=== PATIENT | female | born 1995 | race Caucasian/White ===

== ENCOUNTER 2017-07-28 04:32 | Emergency (ER) | payer BC, OTHER ==
[2017-07-28] MEDS ORDERED: DICYCLOMINE 10 MG CAPSULE PO STA (04:44)
[2017-07-28] MEDS ORDERED: ONDANSETRON ODT 4 MG TABLET TL STA (04:44)
--- NOTE | 2017-07-28 05:09 | ED Physician Documentation ---
PD HPI NVD - Stated complaint Stated Complaint: ABDOMINAL PAIN,VOMITING - Chief complaint Chief Complaint: Abd Pain - History obtained from History obtained from: Patient - History of Present Illness Timing - onset: How many hours ago (1) Timing - details: Abrupt onset Associated symptoms: Abdominal pain. No: Fever, Chest pain Contributing factors: No: Sick contact, Bad food Similar symptoms before: Has not had sx before Recently seen: Not recently seen - Additonal information Additional information: Patient is a 22 year old female with a history of anxiety who is presenting to the emergency department for an hour of abdominal pain and one episode of vomiting. Patient states that she woke up with abdominal pain and threw up once and then came to the emergency department. Review of Systems Constitutional: denies: Fever, Chills Eyes: reports: Reviewed and negative Ears: reports: Reviewed and negative Nose: reports: Reviewed and negative Throat: reports: Reviewed and negative GI: reports: Abdominal Pain, Nausea, Vomiting. denies: Constipation, Diarrhea : reports: Vaginal bleeding. denies: Dysuria, Frequency Skin: denies: Rash, Lesions Musculoskeletal: reports: Neck pain, Back pain, Extremity pain Neurologic: reports: Generalized weakness, Focal weakness Psychiatric: reports: Anxiety Immunocompromised: denies: Immunocompromised PD PAST MEDICAL HISTORY - Past Medical History Past Medical History: Yes Respiratory: Asthma Neuro: Headache/migraine Psych: Anxiety - Past Surgical History Past Surgical History: Yes - Present Medications Home Medications: Ambulatory Orders Medication Instructions Recorded Confirmed Sertraline HCl 1 tab PO DAILY 11/27/15 07/28/17 Dicyclomine [Bentyl] 10 mg PO QID #14 capsule 07/28/17 Ondansetron Odt [Zofran] 4 mg TL Q6H PRN #20 tablet 07/28/17 Sulfamethox/Trimeth 800/160 1 each PO BID #14 tablet 07/28/17 [Bactrim Ds 800/160] - Allergies Allergies/Adverse Reactions: Allergies Allergy/AdvReac Type Severity Reaction Status Date / Time No Known Drug Allergies Allergy Verified 11/27/15 02:52 - Social History Does the pt smoke?: No Smoking Status: Never smoker Does the pt drink ETOH?: Yes Does the pt have substance abuse?: No - Immunizations Immunizations are current?: Yes - POLST Patient has POLST: No PD ED PE NORMAL - Vitals Vital signs reviewed: Yes - General General: Alert and oriented X 3, No acute distress, Well developed/nourished - HEENT HEENT: Atraumatic, PERRL, Moist mucous membranes, Pharynx benign - Neck Neck: Supple, no meningeal sign, No JVD - Cardiac Cardiac: RRR, No murmur - Respiratory Respiratory: No respiratory distress - Abdomen Abdomen: Soft, Non tender, Non distended - Derm Derm: Normal color, Warm and dry, No rash - Extremities Extremities: No deformity, Normal ROM s pain, No calf tenderness / cord - Neuro Neuro: Alert and oriented X 3, No motor deficit, No sensory deficit, Normal speech PD ED PE EXPANDED - General General: Alert, Anxious Results - Vitals Vitals: Vital Signs - 24 hr 07/28/17 04:40 Temperature 36.0 C L Heart Rate 84 Respiratory 18 Rate Blood Pressure 128/81 H O2 Saturation 99 Oxygen O2 Source Room air - Labs Labs: Laboratory Tests 07/28/17 05:12 Urine Color YELLOW Urine Clarity HAZY Urine pH 6.0 Ur Specific [place] >=1.030 H Urine Protein NEGATIVE Urine Glucose (UA) NEGATIVE Urine Ketones NEGATIVE Urine Occult Blood LARGE H Urine Nitrite NEGATIVE Urine Bilirubin NEGATIVE Urine Urobilinogen 0.2 (NORMAL) Ur Leukocyte Esterase SMALL H Urine RBC 11-25 H Urine WBC 11-25 H Ur Squamous Epith Cells MANY Squamous H Urine Bacteria Many H Urine Mucus Few Strands Ur Microscopic Review INDICATED Urine Culture Comments NOT INDICATED Urine HCG, Qual NEGATIVE PD MEDICAL DECISION MAKING - ED course Complexity details: reviewed old records, reviewed results, re-evaluated patient , considered differential, d/w patient ED course: Patient was seen and examined at bedside. Patient's vital signs were within normal limits. Patient was treated with zofran and bentyl. One episode of vomiting is not an indication for extensive work up. urine was collected and patient was not but did have findings suggestive of a urinary tract infection. Patient was made aware that extra testing was not indicated at this time. She was told she might develop diarrhea and more vomiting. patient was given detailed discharge and follow up instructions. patient required no further work up and was stable for discharge with outpatient follow up. Departure - Departure Disposition: 01 Home, Self Care Clinical Impression: Gastroenteritis, Urinary tract infection Condition: Good Instructions: ED Gastroenteritis Viral, ED UTI Cystitis Female Follow-Up: Grimm,Juan, MD [Primary Care Provider] - Within 1 week Prescriptions: Dicyclomine [Bentyl] 10 mg PO QID #14 capsule Ondansetron Odt [Zofran] 4 mg TL Q6H PRN #20 tablet PRN Reason: Nausea / Vomiting Sulfamethox/Trimeth 800/160 [Bactrim Ds 800/160] 1 each PO BID #14 tablet Comments: Your symptoms are likely being caused by gastroenteritis and a urinary tract infection. For the gastroenteritis you should take the zofran and bentyl and make sure you stay well hydrated. You may develop some diarrhea along with it. For the urinary tract infection you had your first dose of antibiotics and you will be on them for the next week. You can take motrin or tylenol as needed for pain. You should follow up with your doctor if your symptoms persist. You may return to the emergency department at any time for new, worsening or uncontrollable symptoms.
[2017-07-28] MEDS ORDERED: ACETAMINOPHEN 500 MG TABLET PO STA (05:15)
[2017-07-28 05:24] LABS: BILIRUBIN,URINE NEGATIVE (NEGATIVE); CLARITY,URINE HAZY (CLEAR); GLUCOSE, URINE (UA) NEGATIVE (NEGATIVE); KETONES,URINE (UA) NEGATIVE (NEGATIVE); LEUKOCYTE ESTERASE, URINE SMALL (NEGATIVE); NITRITE,URINE NEGATIVE (NEGATIVE); OCCULT BLOOD,URINE LARGE (NEGATIVE); PROTEIN,URINE NEGATIVE (NEGATIVE); UROBILINOGEN,URINE 0.2 (NORMAL) E.U./dL (NORMAL)
[2017-07-28 05:27] LABS: HCG UR QUAL NEGATIVE
[2017-07-28 05:31] LABS: BACTERIA,URINE Many /HPF (None Seen); MUCUS,URINE Few Strands; SQUAMOUS EPITHELIAL CELL,UR MANY Squamous (<= Few)
[2017-07-28] MEDS ORDERED: SULFAMETH/TRIMETH DS 800/160 MG TABLET PO STA (05:33)
[2017-07-28 05:51] VITALS: BP 119/70
== END 2017-07-28 05:51 | disposition home or self-care (01) ==
LOC: ED 04:32
DX: K52.9 Noninfective gastroenteritis and colitis, unspecified (principal); N39.0 Urinary tract infection, site not specified; J45.909 Unspecified asthma, uncomplicated; F41.9 Anxiety disorder, unspecified
CPT/HCPCS: 81001; 81025; 99283; A9270; Q0162; 81003; 87086